=== PATIENT | male | born 1975 ===

== ENCOUNTER 2018-02-20 09:15 | Day surgery (SDC) | payer BC ==
[2018-02-20] MEDS ORDERED: Propofol 10 mg/ml Inj (20 ML) ONE ×2 (12:24→12:46)
[2018-02-20] MEDS ORDERED: Lactated Ringer's 500 ML IV ONE ×2 (12:25→13:12)
[2018-02-20 12:30] VITALS: O2SAT 100
[2018-02-20] MEDS ORDERED: Midazolam 2 MG/2 ML VIAL ONE (12:46)
[2018-02-20 13:40] VITALS: TEMP 98
[2018-02-20 13:59] VITALS: PULSE 61
[2018-02-20 14:25] VITALS: BP 109/69; RESP 16
== END 2018-02-20 14:20 | disposition home or self-care (01) ==
LOC: C.ENDO 09:15
PROVIDERS: ATTEND Internal Medicine Gastroenterology
DX: K29.50 Unspecified chronic gastritis without bleeding (principal); D12.5 Benign neoplasm of sigmoid colon; D12.4 Benign neoplasm of descending colon; D12.2 Benign neoplasm of ascending colon; D12.0 Benign neoplasm of cecum; B96.81 Helicobacter pylori [H. pylori] as the cause of diseases classified elsewhere; K44.9 Diaphragmatic hernia without obstruction or gangrene; K64.8 Other hemorrhoids
CPT/HCPCS: 43239; 45380; 88305; 88313; 88342; J2001; J2250; J2704; J7120